=== PATIENT | male | born 1960 | race Caucasian/White ===

== ENCOUNTER 2018-09-25 09:56 | Emergency (ER) | payer SELFPAY ==
[~2018-09-25] VITALS: Ht 172.7 cm; Wt 91.5 kg
[2018-09-25 11:09] LABS: MEAN CORPUSCULAR HEMOGLOBIN 31.4 pg (27.5-34.5); MEAN CORPUSCULAR HGB CONC 34.1 g/dL (33.2-36.2); PLATELET COUNT 177 x10^3/uL (130-400); RED BLOOD COUNT 5.14 x10^6/uL (4.38-5.82); RED CELL DISTRIBUTION WIDTH 12.9 % (9.4-14.8)
--- NOTE | 2018-09-25 11:09 | NUR ---
PT PLACED ON BP CUFF, PULSE OX. VSS. LABS DRAWN. BSC IN ROOM WITH COLLECTION CONTAINER IN PLACE. PT UNDERSTANDS NEED FOR STOOL SPECIMEN. CALL LIGHT WITHIN REACH.
[2018-09-25 11:16] LABS: ALANINE AMINOTRANSFERASE 31 U/L (12-78); ALBUMIN 3.4 g/dL (3.4-5.0); ANION GAP 9 mmol/L (5-15); CALCIUM 8.4 mg/dL (8.5-10.1); CHLORIDE 105 mmol/L (98-107); CREATININE 0.91 mg/dL (0.7-1.3)
[2018-09-25 11:18] LABS: ALKALINE PHOSPHATASE 85 U/L (45-117); BILIRUBIN,TOTAL 0.5 mg/dL (0.2-1.0); TOTAL PROTEIN 7.3 g/dL (6.4-8.2)
[2018-09-25 11:32] LABS: MD YES
[2018-09-25 11:34] LABS: BAND#(MANUAL) 0.11 x10^3/uL; BANDS%(MANUAL) 1 % (0-7); BASOS#(MANUAL) 0.11 x10^3/uL (0-0.1); BASOS% (MANUAL) 1 % (0-1); EOS#(MANUAL) 0.46 x10^3/uL (0.0-0.4); EOS% (MANUAL) 4 % (1-7); LYMPH#(MANUAL) 2.96 x10^3/uL (1-3.4); LYMPHS% (MANUAL) 26 % (22-44); MONOS#(MANUAL) 1.25 x10^3/uL (0.3-2.7); MONOS% (MANUAL) 11 % (2-9); MYELOCYTES# (MANUAL) 0.11 x10^3/uL (0-0); MYELOCYTES% (MANUAL) 1 % (0-0); SEG#(MANUAL) 6.38 x10^3/uL (1.8-6.8); SEGS% (MANUAL) 56 % (42-75)
[2018-09-25 11:36] LABS: <PLATELET ESTIMATE> ADEQUATE; <PLT MORPHOLOGY> NORMAL PLT MORPH; <RBC MORPHOLOGY> NORMAL
--- NOTE | 2018-09-25 11:49 | NUR ---
STOOL COLLECTED/WALKED TO LAB.
[2018-09-25] MEDS ORDERED: POTASSIUM CHLORIDE 20 MEQ TAB.ER.PRT ONE (11:53)
[2018-09-25] MEDS ORDERED: POTASSIUM CHLORIDE 20 MEQ TAB.ER.PRT PO ONE (12:00)
--- NOTE | 2018-09-25 12:00 | NUR ---
POTASSIUM GIVEN PER ERP ORDER. WARM BLANKET AND SPRITE GIVEN ON REQUEST. VSS/UPDATED IN COMPUTER. CALL LIGHT WITHIN REACH.
[2018-09-25 12:54] LABS: CLOSTRIDIUM DIFFICILE ANTIGEN NEGATIVE; CLOSTRIDIUM DIFFICILE TOXIN NEGATIVE (Negative)
--- NOTE | 2018-09-25 13:14 | NUR ---
PT TO BE DISCHARGED BACK TO [facility]. AWAITING D/C PAPERWORK AND TRANSPORT. PT AWARE OF DISCHARGE.
--- NOTE | 2018-09-25 13:25 | NUR ---
REPORT TO ROSANNE AT [facility]. PER ROSANNE, AWAITING CLEARANCE FROM TRANSPORTATION SPECIALIST BEFORE PT CAN BE TRANSPORTED BACK TO FACILITY. ROSANNE TO CALL BACK.
--- NOTE | 2018-09-25 14:23 | NUR ---
PT SLEEPING, NAD. CONTINUE TO AWAIT TRANSPORT/ACCEPTANCE BACK TO [facility].
--- NOTE | 2018-09-25 15:19 | NUR ---
PT SLEEPING, NAD. CONTINUE TO AWAIT [facility] RETURN CALL TO ACCEPT PT BACK TO FACILITY.
--- NOTE | 2018-09-25 16:01 | NUR ---
CONTINUE TO AWAIT [facility] RETURN CALL. ED DIET TRAY ORDERED. PT SLEEPING, NAD.
--- NOTE | 2018-09-25 16:58 | NUR ---
SPOKE WITH MEE AT [facility]. DR. MARVIN ACCEPTING PT BACK
--- NOTE | 2018-09-25 17:01 | NUR ---
MEAL TRAY PROVIDED. PT SLEEPING. CONTINUE TO AWAIT ACCEPTANCE TO [facility]
[2018-09-25 17:42] VITALS: BP 121/89
--- NOTE | 2018-09-25 17:48 | NUR ---
AWAITING [facility] FOR TRANSPORT, ETA 1800. PT UPDATED ON POC.
== END 2018-09-25 18:20 ==
LOC: ED 12:57
DX: R19.7 Diarrhea, unspecified (principal); R11.0 Nausea; E87.6 Hypokalemia
CPT/HCPCS: 36415; 80053; 85025; 87324; 89055; 99283; 99285